=== PATIENT | male | born 1965 | race Caucasian/White ===

== ENCOUNTER → 2016-06-11 | Outpatient (CLI) | payer MEDICARE | END | disposition home or self-care (01) | LOC: LAB.O 14:20 | PROVIDERS: ATTEND Psychiatry & Neurology Neurology | DX: F44.5 Conversion disorder with seizures or convulsions (principal) ==

== ENCOUNTER → 2016-08-07 | Outpatient (CLI) | payer MEDICARE | END | disposition home or self-care (01) | LOC: LAB.O 15:04 | PROVIDERS: ATTEND Nurse Practitioner Family | DX: G40.909 Epilepsy, unspecified, not intractable, without status epilepticus (principal); Z12.5 Encounter for screening for malignant neoplasm of prostate; Z13.9 Encounter for screening, unspecified; R94.6 Abnormal results of thyroid function studies | CPT/HCPCS: 36415; 80164; 80185; 84439; 84443; G0103 ==

== ENCOUNTER → 2016-11-15 | Outpatient (CLI) | payer MEDICARE | LOC: NC 16:47 | PROVIDERS: ATTEND Psychiatry & Neurology Neurology | DX: G40.919 Epilepsy, unspecified, intractable, without status epilepticus (principal); B19.20 Unspecified viral hepatitis C without hepatic coma ==

== ENCOUNTER → 2016-11-27 | Outpatient (CLI) | payer MEDICARE | END | disposition home or self-care (01) | LOC: LAB.O 13:56 | PROVIDERS: ATTEND Psychiatry & Neurology Neurology | DX: G40.919 Epilepsy, unspecified, intractable, without status epilepticus (principal) ==

== ENCOUNTER → 2017-01-10 | Outpatient (CLI) | payer MEDICARE | END | disposition home or self-care (01) | LOC: NC 13:45 | PROVIDERS: ATTEND Psychiatry & Neurology Neurology | DX: G40.311 Generalized idiopathic epilepsy and epileptic syndromes, intractable, with status epilepticus (principal); G93.9 Disorder of brain, unspecified; F11.20 Opioid dependence, uncomplicated; G44.229 Chronic tension-type headache, not intractable; Z96.89 Presence of other specified functional implants ==

== ENCOUNTER → 2017-02-15 | Outpatient (CLI) | payer MEDICARE | END | disposition home or self-care (01) | LOC: NC 17:19 | PROVIDERS: ATTEND Psychiatry & Neurology Neurology | DX: G40.919 Epilepsy, unspecified, intractable, without status epilepticus (principal); B19.20 Unspecified viral hepatitis C without hepatic coma ==

== ENCOUNTER → 2017-04-05 | Outpatient (CLI) | payer MEDICARE | LOC: NC 15:48 | PROVIDERS: ATTEND Psychiatry & Neurology Neurology | DX: G40.919 Epilepsy, unspecified, intractable, without status epilepticus (principal); B19.20 Unspecified viral hepatitis C without hepatic coma ==

== ENCOUNTER → 2017-06-14 | Outpatient (CLI) | payer MEDICARE | LOC: NC 15:12 | PROVIDERS: ATTEND Psychiatry & Neurology Neurology | DX: G40.311 Generalized idiopathic epilepsy and epileptic syndromes, intractable, with status epilepticus (principal); F11.20 Opioid dependence, uncomplicated; Z96.89 Presence of other specified functional implants ==

== ENCOUNTER → 2017-07-18 | Outpatient (CLI) | payer MEDICARE | LOC: NC 15:54 | PROVIDERS: ATTEND Psychiatry & Neurology Neurology | DX: G40.311 Generalized idiopathic epilepsy and epileptic syndromes, intractable, with status epilepticus (principal); G93.3 Postviral and related fatigue syndromes; F11.20 Opioid dependence, uncomplicated; G44.221 Chronic tension-type headache, intractable ==

== ENCOUNTER → 2017-08-08 | Outpatient (CLI) | payer MEDICARE | LOC: NC 14:08 | PROVIDERS: ATTEND Psychiatry & Neurology Neurology | DX: G40.311 Generalized idiopathic epilepsy and epileptic syndromes, intractable, with status epilepticus (principal); G44.221 Chronic tension-type headache, intractable; G93.9 Disorder of brain, unspecified; G40.919 Epilepsy, unspecified, intractable, without status epilepticus; B19.20 Unspecified viral hepatitis C without hepatic coma ==

== ENCOUNTER → 2017-10-01 | Outpatient (CLI) | payer MEDICARE | LOC: NC 13:00 | PROVIDERS: ATTEND Psychiatry & Neurology Neurology | DX: F11.20 Opioid dependence, uncomplicated (principal); G40.219 Localization-related (focal) (partial) symptomatic epilepsy and epileptic syndromes with complex partial seizures, intractable, without status epilepticus; G40.311 Generalized idiopathic epilepsy and epileptic syndromes, intractable, with status epilepticus ==

== ENCOUNTER → 2018-01-02 | Outpatient (CLI) | payer MEDICARE | LOC: NC 14:37 | PROVIDERS: ATTEND Psychiatry & Neurology Neurology | DX: Z13.29 Encounter for screening for other suspected endocrine disorder (principal); G40.919 Epilepsy, unspecified, intractable, without status epilepticus; G43.909 Migraine, unspecified, not intractable, without status migrainosus; B19.20 Unspecified viral hepatitis C without hepatic coma; R73.09 Other abnormal glucose; D52.9 Folate deficiency anemia, unspecified; E55.9 Vitamin D deficiency, unspecified; R94.6 Abnormal results of thyroid function studies; E03.9 Hypothyroidism, unspecified; D64.9 Anemia, unspecified; Z96.89 Presence of other specified functional implants ==

== ENCOUNTER 2018-02-11 10:52 | Emergency (ER) | payer MEDICARE ==
--- NOTE | 2018-02-11 11:42 | ED.PDOC ---
History of Present Illness - General Chief Complaint: Trauma Time Seen by Provider: 02/11/18 11:35 Source: patient, family Exam Limitations: no limitations - History of Present Illness Initial Comments: GROUND LEVEL FALL AT HOME 4 D AGO WHEN TRIPPED (NOT D/T SZ). PT HAS H/O BL FOOT DROP R>L. LBP SINCE THE FALL, RESULTING IN WORSENED GAIT (USUALLY HE AMBULATES W/O ASSISTANCE BUT NEEDING WHEELCHAIR SINCE THE FALL). NO SZ TODAY. H/O L4/5 FRX YEARS AGO. H/O EPILEPSY FOR WHICH HE WEARS A HELMET. [place]URO AP[place] [address] STEWART IN [facility]. FALL, LBP, GAIT INSTABILITY, CHRONIC BLE WEAKNESS, WORSENED Allergies/Adverse Reactions: Allergies NO KNOWN ALLERGY Allergy (Verified 01/08/15 10:09) Home Medications: Ambulatory Orders Divalproex Sodium [Depakote] 1,000 mg PO BID 01/08/15 HYDROcodone 7.5MG/APAP 325MG [[place] 7.5/325] 1 tab PO QID 01/08/15 Naproxen [Naprosyn] 500 mg PO BID #20 tab 01/08/15 Phenytoin Sodium Cap Extended [Dilantin Cap] 200 mg PO BID 01/08/15 Trileptal 1 each PO DAILY 01/08/15 Methylprednisolone [Medrol Dose Benjie] 4 mg PO DAILY #1 tab 02/11/18 Review of Systems - Review of Systems Constitutional: States: no symptoms reported EENTM: States: no symptoms reported Respiratory: States: no symptoms reported Cardiology: States: no symptoms reported Gastrointestinal/Abdominal: States: no symptoms reported Genitourinary: States: no symptoms reported Musculoskeletal: States: back pain. Denies: neck pain Skin: States: no symptoms reported Neurological: States: pre-existing deficit, weakness - BLE Endocrine: States: no symptoms reported Hematologic/Lymphatic: States: no symptoms reported All other Systems: Reviewed and Negative Past Medical History (General) - Patient Medical History Hx Seizures: Yes - seizures through night, and yesterday Hx Stroke: No Hx Dementia: No Hx Asthma: No - lower right lobe remaining Hx of COPD: No - left lung. rt lung, one lobe remains Hx Cardiac Disorders: No Hx Congestive Heart Failure: No Hx Pacemaker: No Hx Hypertension: No Hx Thyroid Disease: No Hx Diabetes: No Hx Gastroesophageal Reflux: No Hx Renal Disease: No Hx Cancer: No Hx of HIV: No Hx Hepatitis C: Yes Hx MRSA: No - Vaccination History Hx Tetanus, Diphtheria Vaccination: No Hx Influenza Vaccination: Yes Hx Pneumococcal Vaccination: Yes Immunizations Up to Date: No - Social History Hx Tobacco Use: No Hx Chewing Tobacco Use: No Hx Alcohol Use: No Hx Substance Use: No Hx Substance Use Treatment: No Hx Depression: No Feels Threatened In Home Enviroment: No Feels Threatened In a Relationship: No Hx Physical Abuse: No Hx Emotional Abuse: No Hx Suspected Abuse: No - Female History Patient is a Female of Child Bearing Age (10 -59 yrs old): No Patient : No Family Medical History - Family History Mother Family History: No Known Living Status: Still Living Hx Family Hypertension: Yes Physical Exam - Physical Exam General Appearance: Alert, Well Nourished Eye Exam: bilateral normal Ears, Nose, Throat: hearing grossly normal, normal ENT inspection, other - PROTECTIVE HELMET IN PLACE FOR CHRONIC SZ. Neck: non-tender, full range of motion, supple Respiratory: chest non-tender, lungs clear Cardiovascular/Chest: normal peripheral pulses, regular rate, rhythm Peripheral Pulses: radial,right: 2+, radial,left: 2+ Gastrointestinal/Abdominal: normal bowel sounds, non tender, soft Back Exam: normal inspection, no CVA tenderness, vertebral tenderness - L SPINOUS AND PARASPINOUS, LUMBAR. , other - POS BL SLR. 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 BUE MOTOR NL. DTR: 3+: Patellar, left, Patellar, right Skin Exam: normal color, warm/dry Lymphatic: no adenopathy Progress - Progress Progress: 02/11/18 14:[address]: NO FRX. CHRONIC DDD AFFECTING SPINAL CORD WHICH LIKELY CONTRIBUTES TO HIS ACUTE ON CHRONIC BLE WEAKNESS. PT HAS A F/U WITH IS NEUROLOGIST. I WILL RX MEDROL DOSE PACK TO HELP WITH THE PAIN AND INFLAMMATION. SAFE FOR DC TO HOME. HE HAS A FAMILY MEMBER PRESENT TO HELP HIM. - EKG/XRAY/CT CT Ordered: No CT Interpretation Call Back: No Departure - Departure Clinical Impression: Weakness, Central stenosis of spinal canal, L4-L5 disc bulge, Foraminal stenosis of lumbar region, Facet arthropathy, lumbar Fall Qualifiers: Encounter type: initial encounter Qualified Code(s): W19.XXXA - Unspecified fall, initial encounter Lumbago Qualifiers: Chronicity: acute Back pain laterality: bilateral Sciatica presence: unspecified whether sciatica present Qualified Code(s): M54.5 - Low back pain Disposition: Discharge to Home or Self Care Condition: Good Departure Forms: ED Discharge - Pt. Copy, Patient Portal Self Enrollment Instructions: DI for Trauma Diet: resume usual diet Activity: increase activity as tolerated Referrals: AUSTYN SIDDIQUI [Primary Care Provider] - 1-2 Weeks Prescriptions: Methylprednisolone [Medrol Dose Benjie] 4 mg PO DAILY #1 tab Home Medications: Ambulatory Orders Divalproex Sodium [Depakote] 1,000 mg PO BID 01/08/15 HYDROcodone 7.5MG/APAP 325MG [[place] 7.5/325] 1 tab PO QID 01/08/15 Naproxen [Naprosyn] 500 mg PO BID #20 tab 01/08/15 Phenytoin Sodium Cap Extended [Dilantin Cap] 200 mg PO BID 01/08/15 Trileptal 1 each PO DAILY 01/08/15 Methylprednisolone [Medrol Dose Benjie] 4 mg PO DAILY #1 tab 02/11/18
[2018-02-11] MEDS ORDERED: HYDROcodone 5MG/APAP 325MG 1 EA TAB PO ONE (12:05)
--- NOTE | 2018-02-11 13:05 | CT ---
EXAM DESCRIPTION: Lumbar Spine: Computed Tomography. CLINICAL HISTORY: LBP FROM FALL, BLE WEAKNESS, GAIT INSTABILITY COMPARISON: None Available. TECHNIQUE: Spiral, axial 2.5 x 2.5 mm scans through the lumbarspine without contrast. Coronal and sagittal 2.0 mm Reconstructions. Total Exam DLP: 587.18 mGy-cm. This exam was performed according to our departmental dose-optimization program which includes automated exposure control, adjustment of the mA and/or kV according to patient size and/or use of iterative reconstruction technique; to reduce radiation dose to as low as reasonably achievable (ALARA). FINDINGS: L5-S1: Posterior disc space narrowing with minimal midline bulging 3 mm. Not abutting the thecal sac or the nerve roots. Canal narrowing. Mild to moderate bilateral foraminal narrowing. Bilateral mild facet arthrosis. No fractures. L4-5: Disc space maintained with posterior broad-based 3 mm bulge abutting the thecal sac. Bilateral moderate facet arthrosis and flavum ligament hypertrophy resulting in multifactorial mild canal stenosis. Bilateral moderate foraminal narrowing. No fractures. L3-4: No significant disc bulge. Minimal concavities in the endplates. Trace retrolisthesis. Bilateral facet arthrosis and flavum ligament hypertrophy with multifactorial borderline mild central canal stenosis. Bilateral mild to moderate foraminal narrowing. No fractures. L2-3: Minimal disc space loss. Air density in the anterior disc space with anterior endplate ridging. Trace retrolisthesis. No significant posterior disc bulge. Minimal flavum ligament hypertrophy and bilateral facet arthrosis. Mild to moderate canal narrowing. Mild bilateral foraminal narrowing. No fractures. L1-2: Radiolucent line in the posterior L2 superior endplate in the coronal plane but not extending to the lateral images or the pedicles. Unusual location for a solitary fracture with no displacement. Also no acute findings in the posterior elements. Disc space maintained with anterior endplate ridging. No significant posterior disc bulging. Canal and bilateral foramina are patent. Minimal arthrosis bilateral facets with no ligament hypertrophy. T12-L1: Minimal disc space loss. No disc bulging. Bilateral foramina are patent. Anterior endplate ridging. Posterior elements are unremarkable with no fracture. IMPRESSION: 1. No compression type vertebral body fractures are noted. Radiolucent lines in the posterior margin of the superior is 2 endplate between the pedicles with be an unusual location for fracture and there is no displacement and no pedicle involvement. These are most likely nutrient channels. Posterior elements are intact. If pain persists, or radiculopathy is present, consider follow-up NONEMERGENT MRI scan. 2. Other disc spaces show minimal narrowing and hypertrophy hypertrophic changes in the flavum ligaments with facet arthrosis. 3. Multifactorial borderline mild central canal stenosis at L3-4 and multifactorial mild canal stenosis at L4-5. Moderate foraminal narrowing at both levels. L5-S1 disc bulging with mild to moderate bilateral foraminal narrowing. Electronically signed by: Jhonatan Grove MD 02/11/2018 1:04 PM CDT
[2018-02-11 14:37] VITALS: O2SAT 98
[2018-02-11 14:41] VITALS: BP 150/92; TEMP 98.6
== END 2018-02-11 15:03 | disposition home or self-care (01) ==
LOC: ER 10:52
DX: M51.26 Other intervertebral disc displacement, lumbar region (principal); M21.372 Foot drop, left foot; M21.371 Foot drop, right foot; M48.061 Spinal stenosis, lumbar region without neurogenic claudication; R53.1 Weakness; G40.909 Epilepsy, unspecified, not intractable, without status epilepticus; J44.9 Chronic obstructive pulmonary disease, unspecified; W01.0XXA Fall on same level from slipping, tripping and stumbling without subsequent striking against object, initial encounter; Z79.899 Other long term (current) drug therapy; Y92.89 Other specified places as the place of occurrence of the external cause

== ENCOUNTER 2018-05-10 18:20 | Emergency (ER) | payer MEDICARE ==
[2018-05-10 18:54] VITALS: TEMP 98.8
--- NOTE | 2018-05-10 18:55 | RAD ---
EXAM DESCRIPTION: Shoulder,Right 2 or More Views CLINICAL HISTORY: 52 years, Male, suspected rt shoulder dislocation from fall. COMPARISON: LEFT shoulder radiographs dated 01/05/2012 FINDINGS: Two x-ray views of the RIGHT shoulder were performed. A comminuted and minimally displaced fracture through the RIGHT humeral head extends through the base of the greater tuberosity and passes caudally to the humeral neck. The humeral head is subluxed slightly caudally but is not frankly dislocated. A single screw projects over the medial portion of the RIGHT humeral head from previous repair. A similar screw was also present on the LEFT side on the prior study. Joint space narrowing and bony proliferation involve the RIGHT acromioclavicular joint. An old fracture involves the RIGHT posterior eighth rib. No additional fracture is seen. IMPRESSION: Comminuted, minimally displaced RIGHT humeral head fracture causing slight caudal subluxation. No miguel dislocation. Old RIGHT rib fracture. Electronically signed by: Genie Cerda MD 05/10/2018 6:54 PM [facility] [place]
--- NOTE | 2018-05-10 19:02 | ED.PDOC ---
History of Present Illness - General Chief Complaint: Upper Extremity Injury Time Seen by Provider: 05/10/18 18:26 Source: patient Exam Limitations: no limitations - History of Present Illness Initial Comments: the patient is a 52-year-old male who tripped and fell and injured his right shoulder immediately prior to arrival. He does have a history of epilepsy and multiple falls related to that however this was not due to a seizure apparently. The patient moves the wrist hand and elbow well. No pain over the clavicle or the scapula. He does have pain with active and passive range of mo tion of the right shoulder. He has had previous surgery on the right shoulder distantly. Timing/Duration: momentarily Severity: moderate Improving Factors: immobilization Worsening Factors: movement Associated Symptoms: denies symptoms Allergies/Adverse Reactions: Allergies NO KNOWN ALLERGY Allergy (Verified 05/10/18 18:25) Home Medications: Ambulatory Orders Divalproex Sodium [Depakote] 1,000 mg PO BID 01/08/15 Phenytoin Sodium Cap Extended [Dilantin Cap] 200 mg PO BID 01/08/15 Clonazepam 1 mg PO BID 05/10/18 Diazepam 5 mg PO TID 05/10/18 HYDROcodone 5MG/APAP 325MG [[place] 5/325] 1 tab PO Q4HR PRN 05/10/18 Naproxen [Naprosyn] 500 mg PO BID PRN 05/10/18 Oxcarbazepine [Trileptal] 600 mg PO BID 05/10/18 Review of Systems - Review of Systems Review of Systems: 05/10/18 19:01 for new symptoms only Constitutional: States: no symptoms reported EENTM: States: no symptoms reported Respiratory: States: no symptoms reported Cardiology: States: no symptoms reported Gastrointestinal/Abdominal: States: no symptoms reported Genitourinary: States: no symptoms reported Musculoskeletal: States: see HPI Skin: States: no symptoms reported Neurological: States: no symptoms reported Endocrine: States: no symptoms reported All other Systems: No Change from Baseline Past Medical History (General) - Patient Medical History Hx Seizures: Yes - Epilepsy Hx Stroke: No Hx Dementia: No Hx Asthma: No - lower right lobe remaining Hx of COPD: No - Left lobectomy. Hx Cardiac Disorders: No Hx Congestive Heart Failure: No Hx Pacemaker: No Hx Hypertension: No Hx Thyroid Disease: No Hx Diabetes: No Hx Gastroesophageal Reflux: No Hx Renal Disease: No Hx Cancer: No Hx of HIV: No Hx Hepatitis C: Yes Hx MRSA: No Surgical History: other - Vaccination History Hx Tetanus, Diphtheria Vaccination: No Hx Influenza Vaccination: Yes Hx Pneumococcal Vaccination: Yes - Social History Hx Tobacco Use: No Hx Chewing Tobacco Use: No Hx Alcohol Use: No Hx Substance Use: No Hx Substance Use Treatment: No Hx Depression: No Hx Physical Abuse: No Hx Emotional Abuse: No Hx Suspected Abuse: No - Female History Patient : No Family Medical History - Family History Mother Family History: No Known Living Status: Still Living Hx Family Hypertension: Yes Physical Exam - Physical Exam General Appearance: Alert, Comfortable, No apparent distress Eye Exam: bilateral normal Ears, Nose, Throat: hearing grossly normal, normal ENT inspection Neck: full range of motion, supple Respiratory: lungs clear, normal breath sounds, no respiratory distress, no accessory muscle use Cardiovascular/Chest: normal peripheral pulses, no edema Peripheral Pulses: radial,right: 2+, radial,left: 2+ Gastrointestinal/Abdominal: non tender, soft Rectal Exam: deferred Extremity: normal capillary refill, other - see history of present illness 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 X-ray shows a comminuted minimally displaced fracture of the humeral head. No evidence of any miguel dislocation. He does appear to be neurovascularly intact and no other injuries are found from this fa ll. The patient will be placed in a shoulder immobilizer. He can continue his home medications. He needs to follow up with orthopedics in 7-14 days for a repeat x-ray and evaluation. ER warnings were given. Departure - Departure Clinical Impression: Fracture of humeral head Qualifiers: Encounter type: initial encounter Fracture type: closed Laterality: right Qualified Code(s): S42.291A - Other displaced fracture of upper end of right humerus, initial encounter for closed fracture Disposition: Discharge to Home or Self Care Condition: Fair Departure Forms: ED Discharge - Pt. Copy, Patient Portal Self Enrollment Instructions: DI for Fracture Diet: regular diet Activity: no pushing/pulling with affected limb Referrals: AUSTYN SIDDIQUI [Primary Care Provider] - 1-2 Weeks Home Medications: Ambulatory Orders Divalproex Sodium [Depakote] 1,000 mg PO BID 01/08/15 Phenytoin Sodium Cap Extended [Dilantin Cap] 200 mg PO BID 01/08/15 Clonazepam 1 mg PO BID 05/10/18 Diazepam 5 mg PO TID 05/10/18 HYDROcodone 5MG/APAP 325MG [[place] 5/325] 1 tab PO Q4HR PRN 05/10/18 Naproxen [Naprosyn] 500 mg PO BID PRN 05/10/18 Oxcarbazepine [Trileptal] 600 mg PO BID 05/10/18 Additional Instructions: the patient is a 52-year-old male presenting after having fallen and injured his right shoulder. X-ray shows a comminuted minimally displaced fracture of the humeral head. No evidence of any miguel dislocation. He does appear to be neurovascularly intact and no other injuries are found from this fall. The patient will be placed in a shoulder immobilizer. He can continue his home medications. He needs to follow up with orthopedics in 7-14 days for a repeat x-ray and evaluation. ER warnings were given.
[2018-05-10] MEDS ORDERED: HYDROcodone 7.5MG/APAP 325MG 1 EA TAB PO ONE (19:03)
[2018-05-10 19:28] VITALS: BP 125/55
[2018-05-10 19:45] VITALS: O2SAT 96
== END 2018-05-10 19:45 | disposition home or self-care (01) ==
LOC: ER 18:20
DX: S42.291A Other displaced fracture of upper end of right humerus, initial encounter for closed fracture (principal); G40.909 Epilepsy, unspecified, not intractable, without status epilepticus; Z79.899 Other long term (current) drug therapy; W01.0XXA Fall on same level from slipping, tripping and stumbling without subsequent striking against object, initial encounter; Y92.9 Unspecified place or not applicable; Z86.19 Personal history of other infectious and parasitic diseases

== ENCOUNTER → 2018-05-26 | Outpatient (CLI) | payer MEDICARE ==
--- NOTE | 2018-05-26 11:58 | RAD ---
Two-view right humerus. Two-view right shoulder. Indication: HUMERUS FX Comparison: None. Impression: A.C. and glenohumeral joint alignment normal. A surgical screw noted in the glenoid with suspected mild surrounding lucency which could indicate loosening. There is a comminuted fracture involving the anatomic and surgical neck of the right humerus as well as the greater tuberosity which is slightly laterally displaced by 5 mm. No distal humeral fracture identified. Electronically signed by: Dilip Mora MD 05/26/2018 11:55 AM [facility]
--- NOTE | 2018-05-26 11:58 | RAD ---
Two-view right humerus. Two-view right shoulder. Indication: HUMERUS FX Comparison: None. Impression: A.C. and glenohumeral joint alignment normal. A surgical screw noted in the glenoid with suspected mild surrounding lucency which could indicate loosening. There is a comminuted fracture involving the anatomic and surgical neck of the right humerus as well as the greater tuberosity which is slightly laterally displaced by 5 mm. No distal humeral fracture identified. Electronically signed by: Dilip Mora MD 05/26/2018 11:55 AM [facility]
== END ==
LOC: RAD 09:22
PROVIDERS: ATTEND Orthopaedic Surgery
DX: S42.301D Unspecified fracture of shaft of humerus, right arm, subsequent encounter for fracture with routine healing (principal)

== ENCOUNTER → 2018-06-05 | Outpatient (CLI) | payer MEDICARE ==
--- NOTE | 2018-06-05 10:54 | RAD ---
Right humerus 2 views INDICATION: Humeral fracture shoulder pain IMPRESSION: Relatively transverse humeral neck fracture with background osteopenia/osteoporosis. Cortical fixation screw in the glenoid. Mild impaction. No additional humeral fracture. No destructive process noted. Electronically signed by: Edmar Driscoll MD 06/05/2018 10:52 AM [facility]
--- NOTE | 2018-06-05 11:38 | RAD ---
Right shoulder 3 views INDICATION: Humeral fracture IMPRESSION: Mildly displaced humeral neck fracture. No elevation of the greater tuberosity. No dislocation. Single fixation screw in the glenoid. Multiple healed right rib fractures mild hypertrophy of the AC joint. Electronically signed by: Edmar Driscoll MD 06/05/2018 11:36 AM [facility]
== END ==
LOC: RAD 08:57
PROVIDERS: ATTEND Orthopaedic Surgery
DX: S42.294D Other nondisplaced fracture of upper end of right humerus, subsequent encounter for fracture with routine healing (principal)

== ENCOUNTER → 2018-06-23 | Outpatient (CLI) | payer MEDICARE ==
--- NOTE | 2018-06-23 10:13 | RAD ---
EXAM DESCRIPTION: Humerus,Right CLINICAL HISTORY: S42.294D COMPARISON: June 05, 2017. FINDINGS: 2 views of the right humerus. The fracture of the proximal humeral neck is redemonstrated. The margins of the fracture are more hyperemic. There is callus formation. No other significant change. IMPRESSION: Progressive healing proximal right humeral neck fracture. Electronically signed by: Sid Adam MD 06/23/2018 10:10 AM [facility]
--- NOTE | 2018-06-23 10:18 | RAD ---
EXAM DESCRIPTION: Shoulder,Right 2 or More Views CLINICAL HISTORY: S42.294D COMPARISON: Current views of the humerus, May 26, 2018 TECHNIQUE: Two views right shoulder FINDINGS: Two views of the right shoulder show a single surgical screw overlying the anterior lip of the glenoid and medial aspect of the humeral head. There is an incompletely healed fracture at the junction of the humeral head and neck with a suggestion of minimal callus formation present. Overall alignment is little changed from prior study with the fracture margins less distinct than previously seen. IMPRESSION: 1. Stable proximal fracture at the head and neck junction with early callus formation and incomplete bony union. Electronically signed by: Sarmad Talley MD 06/23/2018 10:15 AM [facility] [place]
== END ==
LOC: RAD 09:36
PROVIDERS: ATTEND Orthopaedic Surgery
DX: S42.294D Other nondisplaced fracture of upper end of right humerus, subsequent encounter for fracture with routine healing (principal)

== ENCOUNTER → 2018-07-10 | Outpatient (CLI) | payer MEDICARE ==
[2018-07-10 15:33] VITALS: BP 135/96; TEMP 98.6; O2SAT 96
--- NOTE | 2018-07-10 16:03 | ED.PDOC ---
History of Present Illness - General Chief Complaint: General Stated Complaint: elevated ammonia, falls Time Seen by Provider: 07/10/18 15:58 Source: patient Exam Limitations: no limitations - History of Present Illness Initial Comments: Pt has not been taking his Lactulose due to concerns about going to toilet more often and risking a fall. He also has R arm in a sling because of a shoulder injury and can"t wipe well after BM's. He had labs done today as outpt and brought results with him. His ammonia level is 106, sodium 126, Dilantin level is 25.1, and valproic acid is 64. Timing/Duration: unsure Severity: mild Improving Factors: rest Worsening Factors: nothing Associated Symptoms: nausea/vomiting, weakness Allergies/Adverse Reactions: Allergies NO KNOWN ALLERGY Allergy (Verified 05/10/18 18:25) Home Medications: Ambulatory Orders Divalproex Sodium [Depakote] 1,000 mg PO BID 01/08/15 Phenytoin Sodium Cap Extended [Dilantin Cap] 200 mg PO BID 01/08/15 Clonazepam 1 mg PO BID 05/10/18 Diazepam 5 mg PO TID 05/10/18 HYDROcodone 5MG/APAP 325MG [[place] 5/325] 1 tab PO Q4HR PRN 05/10/18 Naproxen [Naprosyn] 500 mg PO BID PRN 05/10/18 Oxcarbazepine [Trileptal] 600 mg PO BID 05/10/18 Review of Systems - Review of Systems Constitutional: States: malaise, weakness. Denies: diaphoresis, fever EENTM: States: no symptoms reported Respiratory: States: no symptoms reported Cardiology: States: no symptoms reported Gastrointestinal/Abdominal: States: nausea. Denies: abdominal pain, vomiting Genitourinary: States: no symptoms reported Musculoskeletal: States: no symptoms reported Skin: States: no symptoms reported Neurological: States: seizure, weakness Hematologic/Lymphatic: States: no symptoms reported Past Medical History (General) - Patient Medical History Hx Seizures: Yes - Epilepsy Hx Stroke: No Hx Dementia: No Hx Asthma: No - lower right lobe remaining Hx of COPD: No - Left lobectomy. Hx Cardiac Disorders: No Hx Congestive Heart Failure: No Hx Pacemaker: No Hx Hypertension: No Hx Thyroid Disease: No Hx Diabetes: No Hx Gastroesophageal Reflux: No Hx Renal Disease: No Hx Cancer: No Hx of HIV: No Hx Hepatitis C: Yes Hx MRSA: No Surgical History: other - Vaccination History Hx Tetanus, Diphtheria Vaccination: No Hx Influenza Vaccination: Yes Hx Pneumococcal Vaccination: Yes - Social History Hx Tobacco Use: No Hx Chewing Tobacco Use: No Hx Alcohol Use: No Hx Substance Use: No Hx Substance Use Treatment: No Hx Depression: No Hx Physical Abuse: No Hx Emotional Abuse: No Hx Suspected Abuse: No - Female History Patient : No Family Medical History - Family History Mother Family History: No Known Living Status: Still Living Hx Family Hypertension: Yes Physical Exam - Physical Exam General Appearance: Alert, No apparent distress Eye Exam: bilateral normal Ears, Nose, Throat: hearing grossly normal, normal pharynx Neck: full range of motion, supple Respiratory: lungs clear, normal breath sounds, no respiratory distress Cardiovascular/Chest: normal peripheral pulses, regular rate, rhythm, no edema Gastrointestinal/Abdominal: normal bowel sounds, non tender, soft Extremity: normal range of motion, normal inspection, no pedal edema Neurologic: alert, normal mood/affect, oriented x 3 Skin Exam: normal color, warm/dry Lymphatic: no adenopathy Departure - Departure Clinical Impression: Hyperammonemia, Hyponatremia, Elevated Dilantin level Clinical Impression: (Ruled Out): Subtherapeutic serum dilantin level Disposition: Discharge to Home or Self Care Condition: Fair Departure Forms: ED Discharge - Pt. Copy, Patient Portal Self Enrollment Referrals: AUSTYN SIDDIQUI [Primary Care Provider] - 1-2 Weeks Home Medications: Ambulatory Orders Divalproex Sodium [Depakote] 1,000 mg PO BID 01/08/15 Phenytoin Sodium Cap Extended [Dilantin Cap] 200 mg PO BID 01/08/15 Clonazepam 1 mg PO BID 05/10/18 Diazepam 5 mg PO TID 05/10/18 HYDROcodone 5MG/APAP 325MG [[place] 5/325] 1 tab PO Q4HR PRN 05/10/18 Naproxen [Naprosyn] 500 mg PO BID PRN 05/10/18 Oxcarbazepine [Trileptal] 600 mg PO BID 05/10/18 Additional Instructions: Pt told to restart his lactulose and drink plenty of sport drinks.
== END ==
LOC: LAB 11:33
PROVIDERS: ATTEND Psychiatry & Neurology Neurology
DX: G40.311 Generalized idiopathic epilepsy and epileptic syndromes, intractable, with status epilepticus (principal); G44.221 Chronic tension-type headache, intractable; E55.9 Vitamin D deficiency, unspecified; G93.9 Disorder of brain, unspecified; S06.9X9S Unspecified intracranial injury with loss of consciousness of unspecified duration, sequela

== ENCOUNTER → 2018-07-14 | Outpatient (CLI) | payer MEDICARE ==
--- NOTE | 2018-07-14 12:11 | RAD ---
EXAM DESCRIPTION: Shoulder,Right 2 or More Views CLINICAL HISTORY: 52 years Male, S42.294D COMPARISON: Radiographs dated 06/23/2018. FINDINGS: The visualized bones are poorly mineralized. Unchanged appearance of the fracture of the surgical neck of the humerus with some interval healing. The soft tissues appear grossly unremarkable. IMPRESSION: Unchanged appearance of the fracture of the surgical neck of the humerus with some interval healing. Electronically signed by: Janie Bashir MD 07/14/2018 12:08 PM CDT
--- NOTE | 2018-07-14 12:11 | RAD ---
EXAM DESCRIPTION: Humerus,Right CLINICAL HISTORY: 52 years Male, S42.294D COMPARISON: Radiographs dated 06/23/2018. TECHNIQUE: AP and lateral views of the right humerus were obtained. FINDINGS: Fracture of the surgical neck of the humerus is again visualized with some interval healing. Soft tissue swelling is noted. IMPRESSION: Fracture of the surgical neck of the humerus is again visualized with some interval healing. Electronically signed by: Janie Bashir MD 07/14/2018 12:08 PM CDT
== END ==
LOC: RAD 09:48
PROVIDERS: ATTEND Orthopaedic Surgery
DX: S42.294D Other nondisplaced fracture of upper end of right humerus, subsequent encounter for fracture with routine healing (principal)

== ENCOUNTER → 2018-08-14 | Outpatient (CLI) | payer MEDICARE ==
--- NOTE | 2018-08-15 07:58 | RAD ---
EXAM DESCRIPTION: Shoulder,Right 2 or More Views CLINICAL HISTORY: 52 years Male, S42.294D COMPARISON: July 14, 2018 FINDINGS: Again seen are postoperative changes in the glenoid. A partially united right humeral neck fracture is unchanged from the previous study. The glenohumeral joint is anatomically aligned. The right AC joint is unremarkable. IMPRESSION: Partially united right humeral neck fracture, unchanged from July 14, 2018. No new abnormality or other significant interval change. Electronically signed by: Rory Acuna MD 08/15/2018 7:56 AM CDT
== END ==
LOC: RAD 09:53
PROVIDERS: ATTEND Orthopaedic Surgery
DX: S42.294D Other nondisplaced fracture of upper end of right humerus, subsequent encounter for fracture with routine healing (principal)

== ENCOUNTER → 2018-08-21 | Outpatient (CLI) | payer MEDICARE | LOC: NC 10:22 | PROVIDERS: ATTEND Psychiatry & Neurology Neurology | DX: R56.9 Unspecified convulsions (principal) ==

== ENCOUNTER 2018-09-02 19:55 | Emergency (ER) | payer MEDICARE ==
[2018-09-02 20:33] VITALS: O2SAT 94
--- NOTE | 2018-09-02 20:39 | RAD ---
EXAM: XR Right Shoulder Complete, 2 or More Views CLINICAL HISTORY: 52 years old and is Male; fell in shower onto right shoulder TECHNIQUE: Two or more views of the right shoulder. COMPARISON: 08/14/2018 FINDINGS: Limitations: None. Bones/joints: Stable old fracture of the humeral neck. No acute fracture. No dislocation. Stable a.c. spurring. There is limited glenoid evaluation due to osseous overlap. Intact screw present. Old right rib fractures noted. Soft tissues: Unremarkable. IMPRESSION: No acute findings. Electronically signed by: Letty aSpp MD 09/02/2018 8:37 PM CDT
--- NOTE | 2018-09-02 20:44 | ED.PDOC ---
History of Present Illness - General Chief Complaint: Trauma Stated Complaint: FELL Time Seen by Provider: 09/02/18 20:41 Source: patient Exam Limitations: no limitations - History of Present Illness Initial Comments: Pt fell during a shower caused by a seizure. He has poorly controlled seizures. Pt has pain in the R shoulder and has had fx of that shoulder in the past. Timing/Duration: 1-3 hours Severity: severe Improving Factors: nothing Worsening Factors: movement Associated Symptoms: denies symptoms Allergies/Adverse Reactions: Allergies NO KNOWN ALLERGY Allergy (Verified 05/10/18 18:25) Home Medications: Ambulatory Orders Divalproex Sodium [Depakote] 500 mg PO BID 01/08/15 Phenytoin Sodium Cap Extended [Dilantin Cap] 400 mg PO BEDTIME 01/08/15 Clonazepam 1 mg PO BID 05/10/18 Diazepam 5 mg PO TID PRN 05/10/18 HYDROcodone 5MG/APAP 325MG [[place] 5/325] 1 tab PO Q4HR PRN 05/10/18 Naproxen [Naprosyn] 500 mg PO BID PRN 05/10/18 Oxcarbazepine [Trileptal] 600 mg PO BID 05/10/18 Lactulose 10 gm PO Q6H 07/10/18 Tramadol HCl 50 mg PO Q4HR PRN #15 tab 09/02/18 Review of Systems - Review of Systems Constitutional: States: no symptoms reported EENTM: States: no symptoms reported Respiratory: States: no symptoms reported Cardiology: States: no symptoms reported Gastrointestinal/Abdominal: States: no symptoms reported Genitourinary: States: no symptoms reported Musculoskeletal: States: joint pain - R shoulder pain, joint swelling Skin: States: no symptoms reported Neurological: States: no symptoms reported Endocrine: States: no symptoms reported Past Medical History (General) - Patient Medical History Hx Seizures: Yes - Epilepsy Hx Stroke: No Hx Dementia: No Hx Asthma: No - lower right lobe remaining Hx of COPD: No - Left lobectomy. Hx Cardiac Disorders: No Hx Congestive Heart Failure: No Hx Pacemaker: No Hx Hypertension: No Hx Thyroid Disease: No Hx Diabetes: No Hx Gastroesophageal Reflux: No Hx Renal Disease: No Hx Cancer: No Hx of HIV: No Hx Hepatitis C: Yes - with a blood transfusion Hx MRSA: No Surgical History: other - Vaccination History Hx Tetanus, Diphtheria Vaccination: No Hx Influenza Vaccination: Yes Hx Pneumococcal Vaccination: Yes - Social History Hx Tobacco Use: No Hx Chewing Tobacco Use: No Hx Alcohol Use: No Hx Substance Use: No Hx Substance Use Treatment: No Hx Depression: No Hx Physical Abuse: No Hx Emotional Abuse: No Hx Suspected Abuse: No - Female History Patient : No Family Medical History - Family History Mother Family History: No Known Living Status: Still Living Hx Family Hypertension: Yes Physical Exam - Physical Exam General Appearance: Alert, Obvious distress Eye Exam: bilateral normal Ears, Nose, Throat: normal ENT inspection Neck: non-tender, supple Respiratory: chest non-tender, lungs clear, normal breath sounds Cardiovascular/Chest: normal peripheral pulses, regular rate, rhythm, no edema Gastrointestinal/Abdominal: normal bowel sounds, non tender Extremity: other - R shoulder is tender with 1 + edema and decreased ROM from pain, distal N/V distally intact Neurologic: no motor/sensory deficits, normal mood/affect, oriented x 3 Departure - Departure Clinical Impression: Contusion of right shoulder Qualifiers: Encounter type: initial encounter Qualified Code(s): S40.011A - Contusion of right shoulder, initial encounter Disposition: Discharge to Home or Self Care Departure Forms: ED Discharge - Pt. Copy, Patient Portal Self Enrollment Referrals: AUSTYN SIDDIQUI [Primary Care Provider] - 1-2 Weeks Prescriptions: Tramadol HCl 50 mg PO Q4HR PRN #15 tab PRN Reason: Moderate To Severe Pain Home Medications: Ambulatory Orders Divalproex Sodium [Depakote] 500 mg PO BID 01/08/15 Phenytoin Sodium Cap Extended [Dilantin Cap] 400 mg PO BEDTIME 01/08/15 Clonazepam 1 mg PO BID 05/10/18 Diazepam 5 mg PO TID PRN 05/10/18 HYDROcodone 5MG/APAP 325MG [[place] 5/325] 1 tab PO Q4HR PRN 05/10/18 Naproxen [Naprosyn] 500 mg PO BID PRN 05/10/18 Oxcarbazepine [Trileptal] 600 mg PO BID 05/10/18 Lactulose 10 gm PO Q6H 07/10/18 Tramadol HCl 50 mg PO Q4HR PRN #15 tab 09/02/18
[2018-09-02] MEDS ORDERED: HYDROcodone 7.5MG/APAP 325MG 1 EA TAB PO ONE (20:53)
[2018-09-02 21:30] VITALS: BP 146/90; TEMP 98.4
== END 2018-09-02 21:31 | disposition home or self-care (01) ==
LOC: ER 19:55
DX: S40.011A Contusion of right shoulder, initial encounter (principal); G40.909 Epilepsy, unspecified, not intractable, without status epilepticus; Z86.19 Personal history of other infectious and parasitic diseases; Z79.899 Other long term (current) drug therapy; W18.2XXA Fall in (into) shower or empty bathtub, initial encounter; Y92.89 Other specified places as the place of occurrence of the external cause

== ENCOUNTER → 2018-09-04 | Outpatient (CLI) | payer MEDICARE ==
--- NOTE | 2018-09-05 08:46 | RAD ---
EXAM DESCRIPTION: Shoulder,Right 2 or More Views CLINICAL HISTORY: 52 years Male, FRACTURE OF UPPER END OF RIGHT HUMERUS COMPARISON: Right shoulder radiographs 09/02/2018, 08/14/2018, 07/14/2018, 06/23/2018, 06/05/2018. TECHNIQUE: 2 views of the right shoulder. IMPRESSION: Redemonstrated comminuted and minimally impacted fractures at the right anatomic and surgical necks of the right humerus with increase periosteal reaction and sclerosis along the fracture consistent with healing. No new acute fracture. Stable surgical screw noted in the glenoid. Acromioclavicular joint is intact. Electronically signed by: Danny Parker MD 09/05/2018 8:44 AM CDT
== END ==
LOC: RAD 13:19
PROVIDERS: ATTEND Orthopaedic Surgery
DX: S42.294D Other nondisplaced fracture of upper end of right humerus, subsequent encounter for fracture with routine healing (principal)

== ENCOUNTER → 2018-09-25 | Outpatient (CLI) | payer MEDICARE ==
--- NOTE | 2018-09-26 09:47 | RAD ---
2 radiographs right shoulder Indication: S42.294D Comparison: September 04, 2018 Impression: The fracture involving the surgical neck of the humerus redemonstrated with slightly progressed callus formation indicating continued healing. The fracture remains incompletely united at this time. Alignment is stable. Inferior subluxation humeral head in relation to glenoid. Surgical screw redemonstrated in the glenoid. AC joint alignment normal. Mild AC joint osteoarthritis. There is linear ossification projecting along the superomedial margin of the acromion. This may be projectional, however a new acromial fracture should be excluded. Correlation with point tenderness versus CT recommended. Electronically signed by: Dilip Mora MD 09/26/2018 9:45 AM CDT
--- NOTE | 2018-09-26 10:08 | RAD ---
Study: 3 Views of the Right Foot. Indication: S42.294D, M79.671 Comparison: None. Impression: A likely chronic fracture of the neck of the first proximal phalanx noted with pseudoarthrosis and chronic appearing erosive change at this site. 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 Tiny os peroneum bone. Hammertoe configuration second through fifth digits. No acute fracture identified. Electronically signed by: Dilip Mora MD 09/26/2018 10:06 AM CDT
== END ==
LOC: RAD 09:12
PROVIDERS: ATTEND Orthopaedic Surgery
DX: S42.294D Other nondisplaced fracture of upper end of right humerus, subsequent encounter for fracture with routine healing (principal); M19.071 Primary osteoarthritis, right ankle and foot

== ENCOUNTER → 2018-09-29 | Outpatient (CLI) | payer MEDICARE ==
--- NOTE | 2018-09-30 09:00 | RAD ---
EXAM: Shoulder,Right 1 View CLINICAL HISTORY: Closed fracture of humerus COMPARISON STUDY: Right shoulder x-rays September 25, 2018 TECHNICAL: A single image of the right shoulder is in the axillary projection. FINDINGS: A single screw is present within the right glenoid and appear seated. There is no dislocation of the glenohumeral joint. The right proximal humeral fracture does not appear changed. IMPRESSION: 1. No dislocation. 2. Healing right proximal humeral metaphysis fracture. Electronically signed by: Scott Nino MD 09/30/2018 8:58 AM CDT
== END ==
LOC: RAD 13:09
PROVIDERS: ATTEND Orthopaedic Surgery
DX: S42.294D Other nondisplaced fracture of upper end of right humerus, subsequent encounter for fracture with routine healing (principal)

== ENCOUNTER → 2019-02-05 | Outpatient (CLI) | payer MEDICARE ==
--- NOTE | 2019-02-06 14:20 | CT ---
EXAM DESCRIPTION: Cervical Spine: Computed Tomography. CLINICAL HISTORY: 53 years Male EPILEPSY COMPARISON: CT scan of the lumbar spine without and with contrast. TECHNIQUE: Spiral, axial 2.5 x 2.5 mm scans through the cervical spine without and with IV Optiray 320 nonionic contrast. Axial 2.5 x 2.5 mm reconstructions with bone algorithm. Coronal and sagittal 2.5 mm postcontrast Reconstructions. No adverse reactions. Total Exam DLP: 788 mGy-cm. This exam was performed according to our departmental dose-optimization program which includes automated exposure control, adjustment of the mA and/or kV according to patient size and/or use of iterative reconstruction technique; to reduce radiation dose to as low as reasonably achievable (ALARA). FINDINGS: Enhancement is noted in the past the structures and also in the venous plexus abutting the posterior vertebral bodies and the anterior epidural space. Atlantoaxial joint is slightly asymmetric but no evidence of trauma or significant arthrosis. Small spur projecting from the anterior left medial wall of the foramen magnum, but not abutting the odontoid process. Early arthrosis in the atlantoaxial occipital facets, but C1-C2 facets are negative. No abnormal enhancement. C5-C6 disc space narrowing with anterior disc bulging and endplate ridging. Posterior disc space loss with minimal spondylosis. Bilateral uncinate spurs larger on the right with borderline right neural foraminal stenosis. No abnormal enhancement. Hypertrophic facet arthrosis on the left at C7-T1. No significant disc bulging. Normal enhancement. Canal and neural foramina are patent. No abnormal soft tissue enhancement. No compression type vertebral body fractures at any level. No significant scoliosis and no spondylolisthesis. No abnormal enhancement in the cord from the medulla to the C5-C6 level with normal caliber. Difficult visualization of the cord inferior to C6 due to artifact. IMPRESSION: 1. Mild spondylosis C5-C6 with right neural foraminal stenosis. Correlate for impingement or compromise of the right C6 nerve. 2. No abnormal enhancement in the soft tissue, discs or cord. No canal stenosis at any level. Electronically signed by: Jhonatan Grove MD 02/06/2019 2:19 PM CDT
--- NOTE | 2019-02-06 14:45 | CT ---
EXAM DESCRIPTION: Lumbar Spine w/Contrast: Computed Tomography. CLINICAL HISTORY: 53 years Male EPILEPSY COMPARISON: CT scan of the lumbar spine today with and without IV contrast. TECHNIQUE: Spiral, axial 2.5 x 2.5 mm scans through the cervical spine with and without Optiray 320 nonionic IV contrast. Helical 2.5 x 2.5 mm scans in the axial plane with bone algorithm. Coronal and sagittal 2.0 mm postcontrast Reconstructions. No adverse reactions. Total Exam DLP: Less than 1391 mGy-cm. This exam was performed according to our departmental dose-optimization program which includes automated exposure control, adjustment of the mA and/or kV according to patient size and/or use of iterative reconstruction technique; to reduce radiation dose to as low as reasonably achievable (ALARA). FINDINGS: L5-S1: Minimal posterior disc space loss. Posterior 3 mm midline disc bulge. Mild canal narrowing. Bilateral mild facet arthrosis. Borderline stenosis left foramen and mild to moderate narrowing right foramen. Normal enhancement. L4-L5: The disc space is completely visualized on axial noncontrast image 6/80 and axial postcontrast image 9/80. Minimal concavity of the endplates. Anterior endplate ridging. Bilateral hypertrophic facet arthrosis more on the right than the left with ligament thickening. Posterior midline and right paracentral bulge 5 mm. AP canal diameter 8 mm. Moderate left foraminal narrowing and mild right foraminal narrowing. Normal enhancement. L3-L4: Disc space maintained. Minimal concavity of the endplates. Anterior endplate ridging. No significant disc bulging. Bilateral hypertrophic facet arthrosis and ligament thickening. AP canal diameter 11 mm. Bilateral mild foraminal narrowing. Normal enhancement. L2-L3: Disc space decreased in disc desiccated air in the anterior disc. Posterior minimal disc bulge mostly to the left of midline. Hypertrophic facet arthrosis and flavum ligament thickening. The canal diameter 13 mm. Mild left foraminal narrowing and moderate right foraminal narrowing. Normal enhancement. L1-L2: Minimal disc space loss. Anterior endplate ridging. No significant posterior bulge. Minimal facet arthrosis. Canal and foramina are patent. Normal enhancement. T12-L1: Minimal disc space loss with anterior endplate ridging. No significant disc bulge. Canal and bilateral foramina are patent. No compression type vertebral body fractures at any level. The conus cannot be distinguished due to artifact. No increased enhancement in the distal cord. Paravertebral soft tissues unremarkable. Mild upper lumbar levoscoliosis. IMPRESSION: 1. Right posterior protrusion or bulge of the L4-L5 disc with mild central and right paracentral canal stenosis. Normal enhancement. 2. Borderline stenosis left L5-S1 foramen with posterior midline disc bulge. 3. Decreased disc space and desiccated disc air at L2-3. Mild canal narrowing and moderate right foraminal narrowing. Normal enhancement. 3. Multiple levels of hypertrophic facet arthrosis and ligament thickening contributing to canal narrowing. Also foraminal narrowing. No abnormal enhancement in the soft tissues around the spine, in the canal, or in the disc spaces. Electronically signed by: Jhonatan Grove MD 02/06/2019 2:43 PM CDT
== END ==
LOC: CT 08:59
DX: G40.909 Epilepsy, unspecified, not intractable, without status epilepticus (principal); M47.892 Other spondylosis, cervical region; M51.26 Other intervertebral disc displacement, lumbar region; M51.36 Other intervertebral disc degeneration, lumbar region; M48.07 Spinal stenosis, lumbosacral region; M47.896 Other spondylosis, lumbar region

== ENCOUNTER 2019-02-23 19:39 | Emergency (ER) | payer MEDICARE ==
[2019-02-23] MEDS ORDERED: TETANUS,DIPHTHERIA,PERTUSSIS 1 EA SYG IM ONE (20:26)
--- NOTE | 2019-02-23 20:26 | ED.PDOC ---
History of Present Illness - General Chief Complaint: Laceration Stated Complaint: fall laceration to head Time Seen by Provider: 02/23/19 20:25 - History of Present Illness Initial Comments: 53 yo M with PMH of seizures who is compliant with dilantin, has home health nurse, and wears a helmet for falls with seizures who presents for a scalp laceration associated with a seizure. Per pt, he has frequent seizures that are being managed by his neurologist. Denies concerns with his seizures today. Today he took his helmet off to take his shirt off to change, but failed to sit down first. Pt reports he had a seizure and fell back into a baby gate, causing a laceration to his scalp. Denies f/c, cough, congestion, neck pain, extremity pain, CP, SOB, abd pain, n/v/d, edema, urinary sx, change in vision, weakness, numbness, bowel or bladder incontinence, tongue biting. Reports compliance with all medications. Denies ETOH or drug abuse. Allergies/Adverse Reactions: Allergies NO KNOWN ALLERGY Allergy (Verified 05/10/18 18:25) Home Medications: Ambulatory Orders Phenytoin Sodium Cap Extended [Dilantin Cap] 400 mg PO BEDTIME 01/08/15 Clonazepam 1 mg PO BID 05/10/18 Oxcarbazepine [Trileptal] 600 mg PO BID 05/10/18 RX: Diazepam 5 mg PO TID PRN 05/10/18 RX: Lactulose 10 gm PO Q6H 07/10/18 Review of Systems - Review of Systems Constitutional: Denies: chills, fever EENTM: Denies: eye pain, double vision, nose congestion, throat pain Respiratory: Denies: cough, orthopnea, short of breath Cardiology: Denies: chest pain, edema, palpitations Gastrointestinal/Abdominal: Denies: abdominal pain, constipation, diarrhea, nausea, vomiting Musculoskeletal: Denies: back pain, joint pain, neck pain Skin: States: other - laceration to scalp. Denies: rash Neurological: States: headache - assocaited around laceration to scalp. Denies: numbness, weakness Past Medical History (General) - Patient Medical History Hx Seizures: Yes - Epilepsy Hx Stroke: No Hx Dementia: No Hx Asthma: No - lower right lobe remaining Hx of COPD: No - Left lobectomy. Hx Cardiac Disorders: No Hx Congestive Heart Failure: No Hx Pacemaker: No Hx Hypertension: No Hx Thyroid Disease: No Hx Diabetes: No Hx Gastroesophageal Reflux: No Hx Renal Disease: No Hx Cancer: No Hx of HIV: No Hx Hepatitis C: Yes - with a blood transfusion Hx MRSA: No - Vaccination History Hx Tetanus, Diphtheria Vaccination: No Hx Influenza Vaccination: Yes Hx Pneumococcal Vaccination: Yes - Social History Hx Tobacco Use: No Hx Chewing Tobacco Use: No Hx Alcohol Use: No Hx Substance Use: No Hx Substance Use Treatment: No Hx Depression: No Hx Physical Abuse: No Hx Emotional Abuse: No Hx Suspected Abuse: No - Female History Patient : No Family Medical History - Family History Mother Family History: No Known Living Status: Still Living Hx Family Hypertension: Yes Physical Exam - Physical Exam General Appearance: Alert, No apparent distress, Well Developed, Well Nourished Eye Exam: bilateral normal Ears, Nose, Throat: hearing grossly normal, normal ENT inspection, normal phary nx Neck: non-tender, full range of motion, supple, normal inspection Respiratory: chest non-tender, lungs clear, normal breath sounds, no respiratory distress, no accessory muscle use Cardiovascular/Chest: normal peripheral pulses, regular rate, rhythm, no edema, no gallop, no JVD, no murmur Peripheral Pulses: radial,right: 2+, radial,left: 2+ Gastrointestinal/Abdominal: normal bowel sounds, non tender, soft, no organomegaly, no pulsatile mass Back Exam: normal inspection, no CVA tenderness, no vertebral tenderness Extremity: normal range of motion, non-tender, normal inspection, no pedal edema, no calf tenderness, normal capillary refill, pelvis stable Neurologic: guillotine operator II-XII nml as tested, no motor/sensory deficits, alert, normal mood/affect, oriented x 3 Skin Exam: normal color, warm/dry, other - 7cm laceration to scalp, no active bleeding Progress - Progress Progress: 02/23/19 22:00 Rechecked pt, well appearing, NAD, VS stable, neuro intact, no seizures while in ED. Pt is attempting to find name of neurologist for us to contact for recommendations on medication dosing as lvl is noted to be high today. 02/23/19 22:[address] Negar Chery, pt's neurologist, requests skipping a day of his medication and following up for repeat level this week. 02/23/19 22:58 I have explained and reviewed all results with the pt. Pt now has diesel engine fitter at bedside, they understand neurologist recommendation and will comply. Informed to return in 7-10 days for staple removal. I explained that emergent conditions may arise and to return to the ER for new, worsening, or any persistent conditions. I've explained the importance of f/u for recheck. All questions and concerns addressed at this time. Pt understands and agrees with plan. Pt well appearing, NAD, is stable for discharge. Reva Szymanski MD Emergency Medicine Physician Billing Number [id number] - Results/Orders Results/Orders: Laboratory Results - last 24 hr 02/23/19 02/23/19 02/23/19 20:35 20:35 20:35 WBC 5.5 RBC 4.73 Hgb 14.4 Hct 43.0 MCV 90.8 MCH 30.5 MCHC 33.6 RDW 14.1 Plt Count 353 MPV 6.3 L Absolute Neuts (auto) 3.50 Absolute Lymphs (auto) 1.10 Absolute Monos (auto) 0.70 Absolute Eos (auto) 0.10 Absolute Basos (auto) 0.00 Neutrophils % 64.0 Lymphocytes % 19.7 L Monocytes % 13.4 H Eosinophils % 2.5 Basophils % 0.4 Sodium 135 Potassium 3.6 Chloride 93 L Carbon Dioxide 30 Anion Gap 15.6 BUN 10 Creatinine 0.68 BUN/Creatinine Ratio 14.7 Random Glucose 119 H Serum Osmolality 270.3 L Calcium 8.8 Total Bilirubin 0.4 AST 38 ALT 39 Alkaline Phosphatase 152 H Serum Total Protein 7.7 Albumin 4.1 Globulin 3.6 H Albumin/Globulin Ratio 1.1 Phenytoin 27.6 H* Valproic Acid < 0.[address] head/C spine: EXAM DESCRIPTION: Head (accession [id number]), Cervical Spine (accession [id number]) CLINICAL HISTORY: fall hitting head no LOC COMPARISON: None Available. TECHNIQUE: Multiple helical axial tomographic images were obtained of the head and cervical spine without intravenous contrast. Coronal and sagittal reformatted images were obtained. This exam was performed according to our departmental dose-optimization program, which includes automated exposure control, adjustment of the mA and/or kV according to patient size and/or use of iterative reconstruction technique. FINDINGS: An area of encephalomalacia involving the left frontal, parietal and temporal lobes demonstrated suggestive of remote insult. There is no acute intracranial hemorrhage. No mass. No midline shift. No ventriculomegaly. Wright-white matter differentiation is maintained. Paranasal sinuses are clear. Mastoid air cells and middle ear spaces are clear. Orbits and orbital contents are unremarkable. No acute calvarial fracture. No evidence for an acute fracture of the cervical spine. No subluxation. Degenerative disc space narrowing and osteophyte formation at C5-C6 is present with associated neural foraminal narrowing. An area of subcutaneous stranding of the scalp vertex demonstrated with a few scattered air densities suggestive of laceration. IMPRESSION: 1. No acute intracranial process. 2. No evidence for an acute fracture of the cervical spine. Electronically signed by: Dane White MD 02/23/2019 9:49 PM [employer] [facility] Procedures - Laceration/Wound Repair Head Wound Length (cm): 7 Wound's Depth, Shape: superficial Wound Explored: no foreign body removed Irrigated w/ Saline (cc's): 1,000 Wound Repaired With: danielle Number of Sutures: 24 Layer Closure?: No Sterile Dressing Applied?: Yes Departure - Departure Clinical Impression: Seizure disorder Fall from standing Qualifiers: Encounter type: initial encounter Qualified Code(s): W19.XXXA - Unspecified fall, initial encounter Scalp laceration Qualifiers: Encounter type: initial encounter Qualified Code(s): S01.01XA - Laceration without foreign body of scalp, initial encounter Time of Disposition: 22:57 Disposition: Discharge to Home or Self Care Health Concerns: Condition: Stable Departure Forms: ED Discharge - Pt. Copy, Patient Portal Self Enrollment Instructions: DI for Laceration Repair Referrals: Zen Garza MD [Primary Care Provider] - 1-2 Days Home Medications: Ambulatory Orders Phenytoin Sodium Cap Extended [Dilantin Cap] 400 mg PO BEDTIME 01/08/15 Clonazepam 1 mg PO BID 05/10/18 Oxcarbazepine [Trileptal] 600 mg PO BID 05/10/18 RX: Diazepam 5 mg PO TID PRN 05/10/18 RX: Lactulose 10 gm PO Q6H 07/10/18 Additional Instructions: Follow up: [facility] As needed, if symptoms worsen Your neurologist Make appointment, two days, for follow up
--- NOTE | 2019-02-23 21:50 | CT ---
EXAM DESCRIPTION: Head (accession [id number]), Cervical Spine (accession [id number]) CLINICAL HISTORY: fall hitting head no LOC COMPARISON: None Available. TECHNIQUE: Multiple helical axial tomographic images were obtained of the head and cervical spine without intravenous contrast. Coronal and sagittal reformatted images were obtained. This exam was performed according to our departmental dose-optimization program, which includes automated exposure control, adjustment of the mA and/or kV according to patient size and/or use of iterative reconstruction technique. FINDINGS: An area of encephalomalacia involving the left frontal, parietal and temporal lobes demonstrated suggestive of remote insult. There is no acute intracranial hemorrhage. No mass. No midline shift. No ventriculomegaly. Wright-white matter differentiation is maintained. Paranasal sinuses are clear. Mastoid air cells and middle ear spaces are clear. Orbits and orbital contents are unremarkable. No acute calvarial fracture. No evidence for an acute fracture of the cervical spine. No subluxation. Degenerative disc space narrowing and osteophyte formation at C5-C6 is present with associated neural foraminal narrowing. An area of subcutaneous stranding of the scalp vertex demonstrated with a few scattered air densities suggestive of laceration. IMPRESSION: 1. No acute intracranial process. 2. No evidence for an acute fracture of the cervical spine. Electronically signed by: Dane White MD 02/23/2019 9:49 PM [facility]
--- NOTE | 2019-02-23 21:51 | CT ---
EXAM DESCRIPTION: Head (accession [id number]), Cervical Spine (accession [id number]) CLINICAL HISTORY: fall hitting head no LOC COMPARISON: None Available. TECHNIQUE: Multiple helical axial tomographic images were obtained of the head and cervical spine without intravenous contrast. Coronal and sagittal reformatted images were obtained. This exam was performed according to our departmental dose-optimization program, which includes automated exposure control, adjustment of the mA and/or kV according to patient size and/or use of iterative reconstruction technique. FINDINGS: An area of encephalomalacia involving the left frontal, parietal and temporal lobes demonstrated suggestive of remote insult. There is no acute intracranial hemorrhage. No mass. No midline shift. No ventriculomegaly. Wright-white matter differentiation is maintained. Paranasal sinuses are clear. Mastoid air cells and middle ear spaces are clear. Orbits and orbital contents are unremarkable. No acute calvarial fracture. No evidence for an acute fracture of the cervical spine. No subluxation. Degenerative disc space narrowing and osteophyte formation at C5-C6 is present with associated neural foraminal narrowing. An area of subcutaneous stranding of the scalp vertex demonstrated with a few scattered air densities suggestive of laceration. IMPRESSION: 1. No acute intracranial process. 2. No evidence for an acute fracture of the cervical spine. Electronically signed by: Dane White MD 02/23/2019 9:49 PM [facility]
[2019-02-23] MEDS ORDERED: CHLORHEXIDINE GLUCONATE 4 % 15 ML UD TOP ONE (22:41)
[2019-02-23] MEDS ORDERED: LIDOCAINE 1% W/ EPINEPHRINE 20 ML VIAL INJ ONE (22:41)
[2019-02-23] MEDS ORDERED: LIDOCAINE 1% 10 ML VIAL INJ ONE (22:41)
[2019-02-23 23:37] VITALS: BP 139/80; TEMP 98.4; O2SAT 94
== END 2019-02-23 23:20 | disposition home or self-care (01) ==
LOC: ER 19:39
DX: S01.01XA Laceration without foreign body of scalp, initial encounter (principal); G40.909 Epilepsy, unspecified, not intractable, without status epilepticus; R51 Headache; M50.322 Other cervical disc degeneration at C5-C6 level; W01.198A Fall on same level from slipping, tripping and stumbling with subsequent striking against other object, initial encounter; Y92.9 Unspecified place or not applicable; Z79.899 Other long term (current) drug therapy; Z86.19 Personal history of other infectious and parasitic diseases

== ENCOUNTER → 2019-03-11 | Outpatient (CLI) | payer MEDICARE | END | disposition home or self-care (01) | LOC: NC 16:10 | PROVIDERS: ATTEND Family Medicine | DX: G40.909 Epilepsy, unspecified, not intractable, without status epilepticus (principal) ==

== ENCOUNTER → 2019-03-26 | Outpatient (CLI) | payer MEDICARE | LOC: NC 14:15 | PROVIDERS: ATTEND Family Medicine | DX: G40.919 Epilepsy, unspecified, intractable, without status epilepticus (principal); G93.9 Disorder of brain, unspecified ==

== ENCOUNTER → 2019-08-06 | Outpatient (CLI) | payer MEDICARE | LOC: NC 16:34 | PROVIDERS: ATTEND Family Medicine | DX: Z86.19 Personal history of other infectious and parasitic diseases (principal) ==

== ENCOUNTER → 2019-09-16 | Outpatient (CLI) | payer MEDICARE | LOC: LAB.O 09:39 | PROVIDERS: ATTEND Psychiatry & Neurology Neurology | DX: G40.909 Epilepsy, unspecified, not intractable, without status epilepticus (principal) ==

== ENCOUNTER → 2019-10-21 | Outpatient (CLI) | payer MEDICARE | LOC: YCFC.O 12:26 | PROVIDERS: ATTEND Family Medicine | DX: G40.909 Epilepsy, unspecified, not intractable, without status epilepticus (principal) ==